=== PATIENT | male | born 1970 | race Two or more races ===

== ENCOUNTER 2016-09-01 13:16 | Emergency (ER) | payer OTHER ==
[~2016-09-01] VITALS: Ht 175.3 cm; Wt 85.3 kg
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
[2016-09-01] MEDS ORDERED: AMLO5TAB2 PO (13:36)
[2016-09-01] MEDS ORDERED: BENA20TA2 PO (13:36)
[2016-09-01] MEDS ORDERED: HYDROCODONE/APAP 5/325MG 1 EACH TABLET ONE (13:58)
[2016-09-01] MEDS ORDERED: ACETAMINOPHEN 325 MG TABLET ONE (13:58)
[2016-09-01] MEDS: HYDROCODONE/APAP 5/325MG 1 EACH TABLET PO ONE (14:04)
[2016-09-01] MEDS: ACETAMINOPHEN 325 MG TABLET PO ONE (14:04)
[2016-09-01 14:20] VITALS: BP 138/85
--- NOTE | 2016-09-01 14:23 | NUR ---
IV removed. Catheter intact and site benign. Pressure and 4x4 applied to site. No bleeding noted.Patient discharged to home in stable condition. Written and verbal after care instructions given. Patient verbalizes understanding of instruction.
== END 2016-09-01 14:24 | disposition home or self-care (01) ==
LOC: ER 13:19
DX: S39.012A Strain of muscle, fascia and tendon of lower back, initial encounter (principal); S50.11XA Contusion of right forearm, initial encounter; I10 Essential (primary) hypertension; V29.49XA Motorcycle driver injured in collision with other motor vehicles in traffic accident, initial encounter; Y93.89 Activity, other specified; Y92.89 Other specified places as the place of occurrence of the external cause; Y99.9 Unspecified external cause status
CPT/HCPCS: 99283; A4606; A6402 ×2; Z7610